=== PATIENT | female | born 1990 | race Caucasian/White ===

== ENCOUNTER 2019-06-27 06:43 | Inpatient (IN) | payer OTHER ==
[~2019-06-27] VITALS: Ht 157.5 cm; Wt 79.4 kg
[2019-06-27] MEDS ORDERED: PRENATABS RX T1 EACH PO (06:47)
[2019-06-27] MEDS ORDERED: SYNTHROID75 MCG PO (06:47)
== END 2019-06-29 14:21 | disposition home or self-care (01) | DRG 807 ==
LOC: LDR 06:43 → OB/GYN 06:43
PROVIDERS: ADMIT Obstetrics & Gynecology
PROC: 10E0XZZ Delivery of Products of Conception, External Approach (ICD-10-PCS; principal; 2019-06-27)
PROC: 0KQM0ZZ Repair Perineum Muscle, Open Approach (ICD-10-PCS; 2019-06-27)
PROC: 10907ZC Drainage of Amniotic Fluid, Therapeutic from Products of Conception, Via Natural or Artificial Opening (ICD-10-PCS; 2019-06-27)
PROC: 4A1HXCZ Monitoring of Products of Conception, Cardiac Rate, External Approach (ICD-10-PCS; 2019-06-27)
DX: O70.1 Second degree perineal laceration during delivery (principal); Z37.0 Single live birth; Z3A.38 38 weeks gestation of pregnancy; Z22.330 Carrier of Group B streptococcus